=== PATIENT | male | born 1945 | race Caucasian/White ===

== ENCOUNTER → 2016-08-22 | Day surgery (SDC) | payer MEDICARE, OTHER ==
[~2016-08-22] MED LIST: BACITRACIN IM FOR SOLN 50,000 UNIT VIAL ONE; BUPIVACAINE/EPINEPHRINE 0.25% 50 ML VIAL ONE; BUPIVACAINE/EPINEPHRINE 0.25% PF 10 ML VIAL ONE; GEMF600 PO; GENTAMICIN SULFATE 80 MG/2 ML VIAL ONE; HYDR-3533 PO; KETOROLAC TROMETHAMINE 30 MG/ML (IVP) VIAL IV PUSH ONE; LACTATED RINGER'S 1000 ML INJ 1,000 ML ONE; MIDAZOLAM HCL 2 MG/2 ML VIAL ONE; MIRA0.5T PO; MORPHINE SULFATE 4 MG/ML INJ ONE; ONDANSETRON HCL 4 MG/2 ML VIAL IV PUSH ONE; PROM25SU8 PO; PROPOFOL 200 MG/20 ML AMP IV ONE; SODIUM CHLORIDE 0.9% 20 ML VIAL ONE; VANCOMYCIN HCL 1000 MG VIAL ONE; ZOFR4TAB3 SL; ceFAZolin 2 GM PREMIX 50 ML ONE; ceFAZolin INJ 1,000 MG VIAL ONE; oxyCODONE/ACETAMINOPHEN 5 MG/325 MG TAB ONE
--- NOTE | 2016-08-22 10:23 | TN ---
cc: COLLIN MAKI M.D. DATE OF SURGERY: August 22, 2016 PREOPERATIVE DIAGNOSIS 1. Right knee medial compartment severe osteoarthritis, genu varus deformity; chondromalacia patella. POSTOPERATIVE DIAGNOSIS 1. Right knee medial compartment severe osteoarthritis, genu varus deformity; chondromalacia patella. PROCEDURE Right knee medial unicondylar arthroplasty, partial patellectomy. SURGEON Collin Maki MD PEDIATRIC CARE COORDINATOR Joe Maki MD, Shanthi Pitts, PAC SPECIMEN None. ESTIMATED BLOOD LOSS Minimal. COMPLICATIONS None. ANESTHESIA General. DRAIN One. TOURNIQUET TIME 51 minutes at 250 mmHg. CONDITION Stable. PLAN OF ACTIVITY Per orders. PROCEDURE My export sales assistant Jaswant Maki MD was present for the entire surgical case. He was medically necessary for the entire case because of the complexity of the case and to facilitate the performance of the procedure. The SEAFOOD CLERK at the back table was not a skill set for this case to manipulate the instruments, e.g., the multiple different types of soft tissue retractors, trial implants and permanent implants. The patient was brought in the operating room, had satisfactory general endotracheal anesthesia by Dr. Guerrero, the Department of Anesthesia. The right lower extremity was prepped and draped in usual sterile manner. The extremity was exsanguinated by Darius wrap and tourniquet inflated to 250 mmHg. Small anterior medial exposure to the knee was made. All bleeders were then coagulated. Dissection was carried through skin and subcutaneous tissue. Primary capsulotomy was performed. Patient was found to have chondromalacia involving the medial facette of patella and severe osteoarthritis with genu varus deformity about the medial facette. Oscillating saw was used to perform a partial patellectomy involving the medial facette of patella. The soft tissues were removed within the knee. Appropriate releases were performed medially and posteriorly, because of the patient's flexion with varus deformity. Using the [employer] unicondylar arthroplasty system, guide was used for the distal posterior femoral condyle cut. Approximately 6 mm was removed. The proximal tibia was repaired using burs. This was to accept a #2 6.5 mm tibial component. The distal femur was prepared to accept a #1 femoral component. Trial reduction was made. The patient was found to have excellent balance with flexion/extension. The patient was found to have excellent correction of the genu varus deformity. All trial components were removed. One package of high viscosity bone cement by [employer] was used. First the tibial component was cemented which is a #2 6.5 mm tibial component, then the femoral component was cemented which is a #1 femoral component. All excess bone cement was removed. The bone cement was allowed to harden for 18 minutes. The knee was also injected with approximately 50 ccs of 0.25% Marcaine with epinephrine. The wound was irrigated with copious amounts of saline. The wound itself was dry. Wound itself was closed in routine manner. The capsule and extensor mechanism was repaired using #2 Tycron sutures, subcuticular layer with 2-0 Vicryl, skin approximated with running subcuticular 3-0 Vicryl. Benzoin and Steri-Strips were used. The patient tolerated the procedure well and arrived in the recovery room in stable and satisfactory condition. MD ALEXA Hernandez/[email or web address] /9:56 AM /10:05 AM
== END | disposition home or self-care (01) ==
LOC: ESDC 06:51
PROVIDERS: ATTEND Orthopaedic Surgery Orthopaedic Surgery of the Spine
DX: M17.11 Unilateral primary osteoarthritis, right knee (principal); M21.161 Varus deformity, not elsewhere classified, right knee; M22.41 Chondromalacia patellae, right knee
CPT/HCPCS: 01400; 27446; C1776; J0690; J1580; J1885; J2250; J2270; J2405; J3010; J3370; J7120